=== PATIENT | female | born 1995 | race Caucasian/White ===

== ENCOUNTER 2016-08-17 15:52 | Observation (INO) ==
[2016-08-17 16:57] LABS: Bilirubin,Urine Negative (Negative); Blood,Urine Negative (Negative); Clarity,Urine Clear (Clear); Color,Urine Yellow (Yellow); Glucose,Urine (UA) Normal (Normal); Ketones,Urine Negative (Negative); Leukocyte Esterase,Urine Negative (Negative); Nitrite,Urine Negative (Negative); PH,Urine 6.5 pH Units (5.0-8.0); Protein,Urine Negative (Neg-Trace); Specific Gravity,Urine 1.021 (1.010-1.025); Urobilinogen,Urine Normal (Normal)
--- NOTE | 2016-08-17 17:04 | OB/GYN Progress Note ---
Date of Encounter: 08/17/16 Time of Encounter: 17:00 - Assessment and Plan (1) 25 weeks gestation of Current Visit: Yes Status: Acute (2) Muscle strain Current Visit: Yes Status: Acute Lower abdominal and lower back muscle tenderness, No fundal tenderness. Discharge home with comfort measures. (3) Vaginal discharge during Current Visit: Yes Status: Acute Vaginosis panel sent. Pool and fern negative. Qualifiers: Trimester: second trimester Qualified Code(s): O26.892 - Other specified related conditions, second trimester; N89.8 - Other specified noninflammatory disorders of vagina Subjective - Subjective Interval history: 20 year-old presenting at 25 weeks with c/o abdominal and back muscle strain. 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 She denies contractions. SHe reports one quarter size leak of fluid. No other discharge, itching, burning, or urinary sx. No other complaints. Good FM. Antepartum ROS: movement normal, no loss of fluid, no vaginal bleeding, no contractions Objective - Vital Signs Vital Signs: Intake and Output 08/17/16 08/17/16 08/17/16 07:59 15:59 23:59 Other: Weight 90.7 kg Patient Weight 08/17/16 23:59 Weight 90.7 kg - Exam FHR comments: FHT reassuring for GA. Auscultation: bilateral: normal Abdomen: Present: soft, gravid. Absent: tenderness Uterus: Present: normal. Absent: tenderness Cervical dilation: visually closed
[2016-08-17 18:56] LABS: Candida DNA Not Detected (Not Detect); Gardnerella DNA ***DETECTED*** (Not Detect); Trichomonas DNA Not Detected (Not Detect)
== END 2016-08-17 17:33 | disposition home or self-care (01) ==
LOC: 1NENULAB
PROVIDERS: ADMIT Obstetrics & Gynecology; ATTEND Obstetrics & Gynecology

== ENCOUNTER → 2016-08-24 22:49 | Observation (INO) | END | disposition home or self-care (01) | LOC: 1NENULAB | PROVIDERS: ADMIT Obstetrics & Gynecology; ATTEND Obstetrics & Gynecology ==

== ENCOUNTER 2016-09-18 08:47 | Observation (INO) ==
[2016-09-18 09:14] LABS: Basophils % 0.3 %; Eosinophils # 0.2 K/mcL (0.0-0.6); Eosinophils % 1.8 %; Hematocrit 33.3 % (35.3-44.9); Hemoglobin 11.1 g/dL (11.5-15.4); Immature Granulocytes % 3.8 % (0-4); Lymphocytes % 17.6 %; Mean Corpuscular HGB Conc 33.3 g/dL (31.6-35.5); Mean Corpuscular Hemoglobin 29.6 pg (28.0-33.3); Mean Corpuscular Volume 88.8 fL (83.0-100.0); Mean Platelet Volume 10.1 fL (9.4-12.4); Monocytes % 9.2 %; Neutrophils # 7.5 K/mcL (1.6-8.9); Platelet Count 233 K/mcL (140-400); Red Blood Count 3.75 M/mcL (3.82-4.97); Red Cell Distribution Width 12.6 % (11.5-14.5); Segmented Neutrophils % 67.3 %
[2016-09-18 09:15] LABS: Bilirubin,Urine Negative (Negative); Blood,Urine Negative (Negative); Clarity,Urine Clear (Clear); Color,Urine Yellow (Yellow); Glucose,Urine (UA) Normal (Normal); Ketones,Urine Negative (Negative); Leukocyte Esterase,Urine Trace (Negative); Nitrite,Urine Negative (Negative); PH,Urine 6.5 pH Units (5.0-8.0); Protein,Urine Negative (Neg-Trace); Specific Gravity,Urine 1.008 (1.010-1.025); Urobilinogen,Urine Normal (Normal)
[2016-09-18] MEDS ORDERED: FLU VACC QS2016-17 36MOS UP/PF 0.5 ML SYRINGE IM ONE (09:16)
[2016-09-18 09:17] LABS: Bacteria,Urine None Seen per hpf (None-Few); Hyaline Casts,Urine None Seen per lpf (None-Few); RBC,Urine 0-3 per hpf (0-3); Squamous Epithelial Cell,Urine Many per lpf (None-Few); WBC,Urine 0-3 per hpf (0-3)
[2016-09-18 09:28] LABS: Alanine Aminotransferase 10 Units/L (0-55); Aspartate Amino Transferase 13 Units/L (5-34); BUN/Creatinine Ratio 11 (6-26); Blood Urea Nitrogen 7 mg/dL (7-20); Lactate Dehydrogenase 240 Units/L (159-327); eGFR For African Americans > 60 (> 60); eGFR For Non-African Americans > 60 (> 60)
[2016-09-18] MEDS ORDERED: Acetaminophen/Butalbital/CaffeineTABLET PO STA (09:40)
--- NOTE | 2016-09-18 09:47 | OB/GYN Progress Note ---
Date of Encounter: 09/18/16 Time of Encounter: 09:43 - Assessment and Plan (1) 30 weeks gestation of Current Visit: Yes Status: Acute admit for observation (2) headache in third trimester Current Visit: Yes Status: Acute Will give medication for headache Subjective - Subjective Principal diagnosis: Swelling and headache in with visual disturbances. Interval history: Patient is 21 y/o @ 30w2d gestational age presents to labor and delivery with complaints of lower leg edema and visual disturbances with a headache. patient reports she has had the headache for a couple of days without any relief from tylenol. Patient also reports occasional nausea. Patient reports +FM , denies any contractions or leaking of fluid, or epigastric pain. Patient denies any urinary symptoms. Antepartum ROS: movement normal, no loss of fluid, no vaginal bleeding, no contractions Objective - Vital Signs Vital Signs: Intake and Output 09/17/16 09/18/16 09/18/16 23:59 07:59 15:59 Other: Weight 93.4 kg Patient Weight 09/18/16 23:59 Weight 93.4 kg - Exam FHR: auscultation normal, category 1 FHR comments: 145 bpm moderate variability +15x15 accels no decels noted. CAt. 1 tracing. Auscultation: bilateral: normal Abdomen: Present: normal appearance, soft, gravid Uterus: Present: normal Comments: 1+DTRs, no clonus. 1+ edema bilateral lower extremities. - Labs Labs: Abnormal lab results WBC 11.2 K/mcL (4.3-11.1) H 09/18/16 09:04 RBC 3.75 M/mcL (3.82-4.97) L 09/18/16 09:04 Hgb 11.1 g/dL (11.5-15.4) L 09/18/16 09:04 Hct 33.3 % (35.3-44.9) L 09/18/16 09:04 Ur Specific [place] 1.008 (1.010-1.025) L 09/18/16 09:04 Ur Leukocyte Esterase Trace (Negative) H 09/18/16 09:04 Ur Squamous Epith Cells Many per lpf (None-Few) H 09/18/16 09:04
== END 2016-09-18 11:45 | disposition home or self-care (01) ==
LOC: 1NENULAB
PROVIDERS: ADMIT Student in an Organized Health Care Education/Training Program; ATTEND Student in an Organized Health Care Education/Training Program

== ENCOUNTER 2016-10-10 17:01 | Observation (INO) ==
[2016-10-10 17:46] LABS: Bilirubin,Urine Negative (Negative); Blood,Urine Negative (Negative); Clarity,Urine Cloudy (Clear); Color,Urine Yellow (Yellow); Glucose,Urine (UA) Normal (Normal); Ketones,Urine Negative (Negative); Leukocyte Esterase,Urine Moderate (Negative); Nitrite,Urine Negative (Negative); PH,Urine 7.5 pH Units (5.0-8.0); Protein,Urine Negative (Neg-Trace); Specific Gravity,Urine 1.011 (1.010-1.025); Urobilinogen,Urine Normal (Normal)
[2016-10-10 17:48] LABS: Bacteria,Urine Few per hpf (None-Few); Hyaline Casts,Urine None Seen per lpf (None-Few); RBC,Urine 0-3 per hpf (0-3); Squamous Epithelial Cell,Urine Many per lpf (None-Few); WBC,Urine 15-30 per hpf (0-3)
[2016-10-10 18:01] LABS: Amorphous Sediment,Urine Moderate (Few)
--- NOTE | 2016-10-10 18:28 | OB/GYN History & Physical ---
Date of Encounter: 10/10/16 Time of Encounter: 18:26 Assessment and Plan (1) 33 weeks gestation of Current visit: Yes Status: Acute back pain located along midline with bandlike radiation to the abdomen causing cramping FHR baseline 140 with variability accel 15x15 History of Present Illness Chief complaint: back pain, pre term labor eval HPI: Ms. Drake is a 21 year old female Past Med Surg Social Fam HX - Past Medical History Medical history: no medical history Psychiatric history: anxiety, ADHD, depression - Past Surgical History Surgical History: cholecystectomy, other - Social History Smoking Status: Former smoker Smokeless Tobacco Status: No Alcohol use: none Drug use: none - Family History Mother Adopted: No Family Member Ethnicity: Non- Living Status: Still Living Hx Family Cardiac Disorders: Yes (htn) Hx Family Respiratory Disorders: No Hx Family Cancer: No Hx Family GI Disorders: No Hx Family Endocrine Disorder: No Hx Family Neuromuscular Disorders: No Hx Family Neurologic Disorders: No Hx Family HEENT Disorders: No Hx Family Autoimmune Disorders: No Obstetrical History - Pregnancies : 2 Para: 1 Term: 1 : 0 Ab's: 0 Livin Medications and Allergies Pnv95/Ferrous Fumarate/FA [ Vitamin Tablet] 1 tab PO DAILY 08/17/16 [ History] Ferrous Sulfate [Iron] 325 mg PO DAILY 09/18/16 [History] Allergies penicillin G Allergy (Verified 10/10/16 17:33) Hives Review of System OB All systems PM: reviewed and no additional remarkable complaints except as stated Exam - Constitutional Constitutional: well developed, well nourished, no acute distress - HEENT HEENT: Normocephaly, Mucus Membranes Moist - Neck Neck exam: full ROM, normal inspection, supple, trachea midline - Lungs Respiratory exam: CTAB - Cardiovascular Cardiovascular exam: RRR, +S1, +S2 - Abdomen Abdomen: Present: bowel sounds normal, gravid, non tender - Extremities Extremities exam: full ROM, normal capillary refill, normal inspection, pedal edema (mild), warm, radial pulses palpable and symetrical Deep Tendon Reflex Grade: 2+ Normal Results Abnormal lab results Urine Clarity Cloudy (Clear) A 10/10/16 17:30 Ur Leukocyte Esterase Moderate (Negative) H 10/10/16 17:30 Urine Microscopic WBC 15-30 per hpf (0-3) H 10/10/16 17:30 Ur Squamous Epith Cells Many per lpf (None-Few) H 10/10/16 17:30 Amorphous Sediment Moderate (Few) H 10/10/16 17:30 Ur Culture Indicated? YES (NO) A 10/10/16 17:30 All other labs normal. - VTE Reasons for not Prescribing Prophylaxis: Treatment not Indicated - Low risk for VTE
--- NOTE | 2016-10-10 18:40 | Discharge Summary ---
Date of Encounter: 10/10/16 Time of Encounter: 18:43 - Discharge Diagnosis (1) 33 weeks gestation of Priority: Primary Status: Acute Comments: 21-year-old female 33 weeks 3 days presents for lower back pain and pink discharge. She follows with OB Dr. Maddox. Reports yesterday afternoon at 1400 she began to experience a dull back ache. With certain movements pain became sharp and appeared to radiate like a band around to the abdomen. She has tried Tylenol and a warm bath to help with the pain but with minimal relief. She denies any heavy lifting but was at work today when pain worsened. Afterwards she began to experience some cramping similar to menstrual cramps. Pain is intermittent. She denies any injury or trauma to the back. Denies any urinary symptoms. Denies any fevers, chills, nausea, vomiting. Denies any contractions or vaginal bleeding but did notice some pink discharge last night. Last sexual intercourse 1 week ago. Endorses good movement. Reports a headache that has been intermittent throughout her . Blood pressure is normotensive here SBP 107. On physical exam patient appears in no apparent distress. No fevers. Normotensive and afebrile. She tolerates solids and liquids without any nausea or vomiting. Abdomen is soft, gravid, without focal tenderness. No CVA tenderness. Tissue texture changes to L2-3 along paraspinal muscles. Likely musculoskeletal pain. Urinalysis not consistent with infection. OMT to lower back with good response, relaxation of tissues and patient reports significant relief of pain. Work excuse given. Patient agrees to return for bright red vaginal bleeding, contractions, headache, changes in vision, RUQ/epigastric discomfort. (2) Back pain affecting in third trimester Priority: Secondary Status: Acute Comments: FHR category 1, baseline 140 with moderate variability, +15x15 accels no decels noted Urinalysis appears contaminated and not consistent with infection Back pain is paraspinal, no CVA tenderness, likely musculoskeletal etiology and not pyelonephritis Recommend to follow up with OB as scheduled Tylenol for pain at home OMT soft tissue massage to L2-3 with good tissue relaxation, patient tolerated treatment well Patient requests future OMT, recommended residency clinic with DO physicians or follow up with her chiropractor - Discharge Medications Home Medications: Pnv95/Ferrous Fumarate/FA [ Vitamin Tablet] 1 tab PO DAILY 08/17/16 [ History] Ferrous Sulfate [Iron] 325 mg PO DAILY 09/18/16 [History] Allergies/Adverse Reactions: Allergies penicillin G Allergy (Verified 10/10/16 17:33) Hives Data Procedures and tests throughout hospitalization: Laboratory Tests 10/10/16 17:30 Urine Color Yellow Urine Clarity Cloudy A Urine pH 7.5 Ur Specific [place] 1.011 Urine Protein Negative Urine Glucose (UA) Normal Urine Ketones Negative Urine Blood Negative Urine Nitrite Negative Urine Bilirubin Negative Urine Urobilinogen Normal Ur Leukocyte Esterase Moderate H Urine Microscopic RBC 0-3 Urine Microscopic WBC 15-30 H Ur Squamous Epith Cells Many H Amorphous Sediment Moderate H Urine Bacteria Few Hyaline Casts None Seen Ur Culture Indicated? YES A Labs on day of discharge: Labs from last 24 hours 10/10/16 17:30 Urine Color Yellow Urine Clarity Cloudy A Urine pH 7.5 Ur Specific [place] 1.011 Urine Protein Negative Urine Glucose (UA) Normal Urine Ketones Negative Urine Blood Negative Urine Nitrite Negative Urine Bilirubin Negative Urine Urobilinogen Normal Ur Leukocyte Esterase Moderate H Urine Microscopic RBC 0-3 Urine Microscopic WBC 15-30 H Ur Squamous Epith Cells Many H Amorphous Sediment Moderate H Urine Bacteria Few Hyaline Casts None Seen Ur Culture Indicated? YES A Date of admission: 10/10/16 17:01 Primary care physician: Frankie Celestin Discharging clinician: Eldon Hernandez Anticipated date of discharge: 10/10/16 - Patient Status Disposition: Home, Self-Care Condition: Good Functional capacity at discharge: independent ambulation Overall status at discharge: patient is progressing back to baseline - Discharge Instructions Instructions: Back Pain (GEN) Follow Up With: Frankie Celestin MD [Primary Care Provider] - Forms: Work/School Release Additional Instructions: LABOR AND DELIVERY DISCHARGE INSTRUCTIONS Signs and Symptoms to be Reported to your Doctor Immediately: * Sudden gush, continuous or intermittent lead of fluid from vagina (note the time of gush and color of fluid) * Onset of bright red vaginal bleeding with or without pain (if you had a vaginal exam during this visit you may notice some dark red spotting. This is normal.) * Lower abdominal cramping or backache that is premenstrual-like feeling. * More than 6 contractions in one hour. * Burning during urination, having to urinate more frequently or pain in your mid-back. * A change in the baby's activity. This could be an increase or decrease in activity. * Severe headache which does not go away with tylenol. * Sudden swelling in the face, hands, arms and/or legs. * Upper abdominal pain - sometimes associated with heartburn or nausea and is not relieved by Maalox, Mylanta or Tums. * Dizziness or blurred vision or visual disturbances (seeing stars/lights). * Kick Counts One hour after a meal, lay down on one side in a quiet place. Count the number of chaitanya the baby moves during an hour. If less than 6 movements, notify your physician. Diet: *Force fluids - 8-10 tall glasses of fluid per day. May include popsicles and jello. 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 Absent: chest wall tenderness, respiratory distress - Cardiovascular Cardiovascular exam IM: Present: RRR, +S1, +S2 - GI/Abdominal GI/Abdominal exam IM: normal bowel sounds, no peritoneal signs Additional comments: no CVA tenderness, mild bilateral paraspinal tenderness along L2-3 - External exam: normal external exam - Extremities Exam Extremities exam IM: Present: full ROM, normal capillary refill, pedal edema ( MILD) - Neurological Exam Neurological exam: alert, oriented X3, reflexes normal, no focal deficits - Psychiatric Additional comments: normal mood and affect - VTE Reasons for not Prescribing Prophylaxis: Treatment not Indicated - Low risk for VTE
== END 2016-10-10 18:58 | disposition home or self-care (01) ==
LOC: 1NENULAB
PROVIDERS: ADMIT Advanced Practice Midwife; ATTEND Obstetrics & Gynecology

== ENCOUNTER 2016-10-12 14:16 | Observation (INO) ==
[2016-10-12 15:19] VITALS: BP 112/68
[2016-10-12 15:20] LABS: Basophils % 0.3 %; Eosinophils # 0.2 K/mcL (0.0-0.6); Eosinophils % 1.5 %; Hematocrit 29.2 % (35.3-44.9); Immature Granulocytes % 2.4 % (0-4); Lymphocytes # 2.1 K/mcL (0.6-4.6); Lymphocytes % 17.5 %; Mean Corpuscular HGB Conc 34.2 g/dL (31.6-35.5); Mean Corpuscular Hemoglobin 29.9 pg (28.0-33.3); Mean Corpuscular Volume 87.4 fL (83.0-100.0); Mean Platelet Volume 10.1 fL (9.4-12.4); Monocytes # 1.1 K/mcL (0.0-1.3); Monocytes % 9.6 %; Neutrophils # 8.1 K/mcL (1.6-8.9); Platelet Count 218 K/mcL (140-400); Red Blood Count 3.34 M/mcL (3.82-4.97); Segmented Neutrophils % 68.7 %
[2016-10-12 15:22] LABS: Alanine Aminotransferase 14 Units/L (0-55); Aspartate Amino Transferase 15 Units/L (5-34); BUN/Creatinine Ratio 11 (6-26); Blood Urea Nitrogen 6 mg/dL (7-20); Lactate Dehydrogenase 143 Units/L (159-327); Uric Acid 5.1 mg/dL (2.6-6.0); eGFR For African Americans > 60 (> 60); eGFR For Non-African Americans > 60 (> 60)
[2016-10-12] MEDS ORDERED: Acetaminophen/Butalbital/CaffeineTABLET PO PRN (15:53)
[2016-10-12] MEDS ORDERED: Ringers Solution, Lactated 1,000 ML ONE (16:13)
[2016-10-12] MEDS ORDERED: Metoclopramide 10 MG/2 ML VIAL IVP ONE (16:51)
--- NOTE | 2016-10-12 17:02 | OB/GYN Progress Note ---
Date of Encounter: 10/12/16 Time of Encounter: 16:30 - Assessment and Plan (1) 33 weeks gestation of Current Visit: No Status: Acute (2) headache in third trimester Current Visit: No Status: Acute BP:95/53 with follow-up of 133/83 PIH labs with normal results Fioricet given for headache with minimal results will give Reglan IV 1 Fluid bolus due to patient stating she has not had a lot to eat or drink today headache has lessened by mouth and IV medications and fluid bolus. will discharge home instructions on when to return to triage for evaluation and call provider discussed with patient and patient states understanding Subjective - Subjective Interval history: 21-year-old at 33 weeks and 5 days called the CNM earlier today with complaints of headache in the front of her head that was not relieved with Tylenol (this has been an ongoing problem in her ) and new onset of seeing white spots in her visual field constantly and also complained of epigastric pain. Patient told to come to triage for PI eval due to new onset of symptoms of visual disturbances and complaint of epigastric pain with headache. Patient confirmed the same symptoms when arriving in triage, patient reports good movement denies any leaking of fluid or vaginal bleeding patient states she is feeling an occasional contraction Antepartum ROS: movement normal, contractions (occasional tightening), no loss of fluid, no vaginal bleeding Objective - Vital Signs Vital Signs: Vital Signs Temp Pulse Resp BP 10/12/16 15:17 97.8 F 106 16 112/68 Intake and Output 10/12/16 10/12/16 10/12/16 07:59 15:59 23:59 Other: Weight 95.6 kg Patient Weight 10/12/16 23:59 Weight 95.6 kg - Exam FHR: auscultation normal Auscultation: bilateral: normal Abdomen: Present: normal appearance, soft, gravid Cervical dilation: fingertip Cervix effacement: long station: -3 - Labs Labs: Abnormal lab results WBC 11.8 K/mcL (4.3-11.1) H 10/12/16 15:00 RBC 3.34 M/mcL (3.82-4.97) L 10/12/16 15:00 Hgb 10.0 g/dL (11.5-15.4) L 10/12/16 15:00 Hct 29.2 % (35.3-44.9) L 10/12/16 15:00 BUN 6 mg/dL (7-20) L 10/12/16 15:00 Lactate Dehydrogenase 143 Units/L (159-327) L 10/12/16 15:00
== END 2016-10-12 17:50 | disposition home or self-care (01) ==
LOC: 1NENULAB
PROVIDERS: ADMIT Obstetrics & Gynecology; ATTEND Obstetrics & Gynecology

== ENCOUNTER 2016-10-18 09:42 | Observation (INO) ==
[2016-10-18 10:50] LABS: Basophils % 0.3 %; Eosinophils # 0.2 K/mcL (0.0-0.6); Eosinophils % 1.6 %; Hematocrit 29.7 % (35.3-44.9); Immature Granulocytes % 2.1 % (0-4); Lymphocytes # 1.4 K/mcL (0.6-4.6); Lymphocytes % 13.1 %; Mean Corpuscular HGB Conc 33.7 g/dL (31.6-35.5); Mean Corpuscular Hemoglobin 29.8 pg (28.0-33.3); Mean Corpuscular Volume 88.4 fL (83.0-100.0); Mean Platelet Volume 10.6 fL (9.4-12.4); Neutrophils # 8.2 K/mcL (1.6-8.9); Platelet Count 230 K/mcL (140-400); Red Blood Count 3.36 M/mcL (3.82-4.97); Red Cell Distribution Width 13.2 % (11.5-14.5); Segmented Neutrophils % 73.9 %
[2016-10-18 10:50] LABS: Bilirubin,Urine Negative (Negative); Blood,Urine Negative (Negative); Clarity,Urine Cloudy (Clear); Color,Urine Yellow (Yellow); Glucose,Urine (UA) Normal (Normal); Ketones,Urine Negative (Negative); Leukocyte Esterase,Urine Small (Negative); Nitrite,Urine Negative (Negative); PH,Urine 6.5 pH Units (5.0-8.0); Protein,Urine Trace mg/dL (Neg-Trace); Specific Gravity,Urine 1.029 (1.010-1.025); Urobilinogen,Urine Normal (Normal)
[2016-10-18 10:53] LABS: Hyaline Casts,Urine None Seen per lpf (None-Few); RBC,Urine 0-3 per hpf (0-3); Squamous Epithelial Cell,Urine Many per lpf (None-Few)
[2016-10-18 10:57] LABS: Protein/Creatinine Ratio,Urine 0.11 mg/mg (0-0.20)
[2016-10-18 11:01] LABS: Alanine Aminotransferase 13 Units/L (0-55); Aspartate Amino Transferase 16 Units/L (5-34); BUN/Creatinine Ratio 11 (6-26); Blood Urea Nitrogen 6 mg/dL (7-20); Lactate Dehydrogenase 171 Units/L (159-327); Uric Acid 5.3 mg/dL (2.6-6.0); eGFR For African Americans > 60 (> 60); eGFR For Non-African Americans > 60 (> 60)
[2016-10-18 11:03] LABS: Bacteria,Urine Few per hpf (None-Few); Calcium Oxalate Crystals,Urine Present; Mucus,Urine Few (Few)
--- NOTE | 2016-10-18 11:18 | Discharge Summary ---
Date of Encounter: 10/18/16 Time of Encounter: 11:17 - Discharge Diagnosis (1) 34 weeks gestation of Priority: Primary Status: Acute Comments: Patient reports good movement denies leaking of fluid. Patient states she last night she was having contractions about every 6 minutes apart. Occasional contractions noted on monitor here areas cervical exam was done in office by Dr. Maddox (2) headache in third trimester Priority: Primary Status: Acute Comments: Patient continues to complain of headache in , headache is in the frontal lobe it is unchanged from earlier in , patient states pain is well managed intolerable, does not desire any intervention at this time. All PIH labs negative. Discussed lab results with patient is in agreement with discharge. Labor precautions discussed with patient and when to call provider and return to triage also discussed and patient states understanding - Discharge Medications Home Medications: Pnv95/Ferrous Fumarate/FA [ Vitamin Tablet] 1 tab PO DAILY 08/17/16 [ History] Ferrous Sulfate [Iron] 325 mg PO DAILY 09/18/16 [History] Allergies/Adverse Reactions: Allergies penicillin G Allergy (Verified 10/18/16 10:10) Hives Data Procedures and tests throughout hospitalization: Laboratory Tests 10/18/16 10/18/16 10/18/16 10:15 10:15 10:34 WBC 11.0 RBC 3.36 L Hgb 10.0 L Hct 29.7 L MCV 88.4 MCH 29.8 MCHC 33.7 RDW 13.2 Plt Count 230 MPV 10.6 Immature Gran % 2.1 Seg Neutrophils % 73.9 Lymphocytes % 13.1 Monocytes % 9.0 Eosinophils % 1.6 Basophils % 0.3 Neutrophils # 8.2 Lymphocytes # 1.4 Monocytes # 1.0 Eosinophils # 0.2 Basophils # 0.0 BUN 6 L Creatinine 0.56 L Est GFR ( Amer) > 60 Est GFR (Non-Af Amer) > 60 BUN/Creatinine Ratio 11 Uric Acid 5.3 AST 16 ALT 13 Lactate Dehydrogenase 171 Urine Color Urine Clarity Urine pH Ur Specific [place] Urine Protein Urine Glucose (UA) Urine Ketones Urine Blood Urine Nitrite Urine Bilirubin Urine Urobilinogen Ur Leukocyte Esterase Urine Microscopic RBC Urine Microscopic WBC Ur Squamous Epith Cells Calcium Oxalate Crystal Urine Bacteria Hyaline Casts Urine Mucus Urine Yeast Ur Culture Indicated? Urine Creatinine 198 Protein/Creatinin Ratio 0.11 Urine Total Protein 21 H 10/18/16 10:34 WBC RBC Hgb Hct MCV MCH MCHC RDW Plt Count MPV Immature Gran % Seg Neutrophils % Lymphocytes % Monocytes % Eosinophils % Basophils % Neutrophils # Lymphocytes # Monocytes # Eosinophils # Basophils # BUN Creatinine Est GFR ( Amer) Est GFR (Non-Af Amer) BUN/Creatinine Ratio Uric Acid AST ALT Lactate Dehydrogenase Urine Color Yellow Urine Clarity Cloudy A Urine pH 6.5 Ur Specific [place] 1.029 H Urine Protein Trace Urine Glucose (UA) Normal Urine Ketones Negative Urine Blood Negative Urine Nitrite Negative Urine Bilirubin Negative Urine Urobilinogen Normal Ur Leukocyte Esterase Small H Urine Microscopic RBC 0-3 Urine Microscopic WBC 5-15 H Ur Squamous Epith Cells Many H Calcium Oxalate Crystal Present Urine Bacteria Few Hyaline Casts None Seen Urine Mucus Few Urine Yeast Test Not Performed Ur Culture Indicated? YES A Urine Creatinine Protein/Creatinin Ratio Urine Total Protein Labs on day of discharge: Labs from last 24 hours 10/18/16 10/18/16 10/18/16 10:34 10:34 10:15 WBC RBC Hgb Hct MCV MCH MCHC RDW Plt Count MPV Immature Gran % Seg Neutrophils % Lymphocytes % Monocytes % Eosinophils % Basophils % Neutrophils # Lymphocytes # Monocytes # Eosinophils # Basophils # BUN 6 L Creatinine 0.56 L Est GFR ( Amer) > 60 Est GFR (Non-Af Amer) > 60 BUN/Creatinine Ratio 11 Uric Acid 5.3 AST 16 ALT 13 Lactate Dehydrogenase 171 Urine Color Yellow Urine Clarity Cloudy A Urine pH 6.5 Ur Specific [place] 1.029 H Urine Protein Trace Urine Glucose (UA) Normal Urine Ketones Negative Urine Blood Negative Urine Nitrite Negative Urine Bilirubin Negative Urine Urobilinogen Normal Ur Leukocyte Esterase Small H Urine Microscopic RBC 0-3 Urine Microscopic WBC 5-15 H Ur Squamous Epith Cells Many H Calcium Oxalate Crystal Present Urine Bacteria Few Hyaline Casts None Seen Urine Mucus Few Urine Yeast Test Not Performed Ur Culture Indicated? YES A Urine Creatinine 198 Protein/Creatinin Ratio 0.11 Urine Total Protein 21 H 10/18/16 10:15 WBC 11.0 RBC 3.36 L Hgb 10.0 L Hct 29.7 L MCV 88.4 MCH 29.8 MCHC 33.7 RDW 13.2 Plt Count 230 MPV 10.6 Immature Gran % 2.1 Seg Neutrophils % 73.9 Lymphocytes % 13.1 Monocytes % 9.0 Eosinophils % 1.6 Basophils % 0.3 Neutrophils # 8.2 Lymphocytes # 1.4 Monocytes # 1.0 Eosinophils # 0.2 Basophils # 0.0 BUN Creatinine Est GFR ( Amer) Est GFR (Non-Af Amer) BUN/Creatinine Ratio Uric Acid AST ALT Lactate Dehydrogenase Urine Color Urine Clarity Urine pH Ur Specific [place] Urine Protein Urine Glucose (UA) Urine Ketones Urine Blood Urine Nitrite Urine Bilirubin Urine Urobilinogen Ur Leukocyte Esterase Urine Microscopic RBC Urine Microscopic WBC Ur Squamous Epith Cells Calcium Oxalate Crystal Urine Bacteria Hyaline Casts Urine Mucus Urine Yeast Ur Culture Indicated? Urine Creatinine Protein/Creatinin Ratio Urine Total Protein Date of admission: 10/18/16 09:42 Primary care physician: Frankie Celestin Discharging clinician: Radha Hayden Anticipated date of discharge: 10/18/16 - Patient Status Disposition: Home, Self-Care Condition: Good Functional capacity at discharge: independent ambulation Overall status at discharge: patient is back to baseline - Discharge Instructions Follow Up With: Frankie Celestin MD [Primary Care Provider] - Aarti Maddox MD [Partnered Physician] - - Diet and Activity Activity: resume usual activities as tolerated Diet: regular diet 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: other (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 eval) Time Attestation: Total time spent providing and/or coordinating discharge services: Time Spent: Less than 30 minutes Exam - Constitutional General appearance IM: A&O X 3 - Respiratory Respiratory exam: Present: CTAB - Cardiovascular Cardiovascular exam IM: Present: RRR, +S1, +S2 - GI/Abdominal GI/Abdominal exam IM: normal bowel sounds, soft (gravid) - Extremities Exam Extremities exam IM: Present: normal capillary refill, normal inspection - Neurological Exam Neurological exam: normal gait, oriented X3, reflexes normal - VTE Reasons for not Prescribing Prophylaxis: Treatment not Indicated - Low risk for VTE
== END 2016-10-18 11:30 | disposition home or self-care (01) ==
LOC: 1NENULAB
PROVIDERS: ADMIT Obstetrics & Gynecology; ATTEND Obstetrics & Gynecology

== ENCOUNTER 2016-10-25 09:12 | Observation (INO) ==
[2016-10-25 09:51] LABS: Basophils % 0.2 %; Eosinophils # 0.1 K/mcL (0.0-0.6); Eosinophils % 1.2 %; Hemoglobin 10.4 g/dL (11.5-15.4); Immature Granulocytes % 2.7 % (0-4); Lymphocytes # 1.8 K/mcL (0.6-4.6); Lymphocytes % 14.7 %; Mean Corpuscular HGB Conc 33.5 g/dL (31.6-35.5); Mean Corpuscular Hemoglobin 29.9 pg (28.0-33.3); Mean Corpuscular Volume 89.1 fL (83.0-100.0); Mean Platelet Volume 10.3 fL (9.4-12.4); Monocytes % 8.3 %; Neutrophils # 8.8 K/mcL (1.6-8.9); Platelet Count 254 K/mcL (140-400); Red Blood Count 3.48 M/mcL (3.82-4.97); Red Cell Distribution Width 13.4 % (11.5-14.5); Segmented Neutrophils % 72.9 %
[2016-10-25 10:12] LABS: Alanine Aminotransferase 21 Units/L (0-55); Aspartate Amino Transferase 18 Units/L (5-34); BUN/Creatinine Ratio 6 (6-26); Blood Urea Nitrogen 4 mg/dL (7-20); Lactate Dehydrogenase 173 Units/L (159-327); Uric Acid 4.9 mg/dL (2.6-6.0); eGFR For African Americans > 60 (> 60); eGFR For Non-African Americans > 60 (> 60)
--- NOTE | 2016-10-25 10:37 | OB/GYN Progress Note ---
Date of Encounter: 10/25/16 Time of Encounter: 10:35 - Assessment and Plan (1) 35 weeks gestation of Current Visit: Yes Status: Acute (2) Elevated blood pressure affecting in third trimester, antepartum Current Visit: Yes Status: Acute Blood pressures all within normal limits here in triage, last blood pressure 121 /63 Patient remains asymptomatic All PIH labs within normal limits heart rate reactive baseline 140 Patient concerned with working long shifts work excuse given to limit work shifts to 8 hours and no more than 30 hours in 1 week Patient discharged to home with labor precautions and when to return to triage, follow-up with Vika at next scheduled appointment (3) NST (non-stress test) reactive Current Visit: Yes Status: Acute Baseline 140 Subjective - Subjective Interval history: Patient presents to triage sent over from the office visit with Dr. Maddox for high blood pressure. Patient denies headache, blurry vision, or other visual changes at this time, also denies epigastric pain. Patient reports good movement denies contractions leaking of fluid or vaginal bleeding. No other complaints at this time Antepartum ROS: movement normal, no loss of fluid, no vaginal bleeding, no contractions Objective - Vital Signs Vital Signs: Intake and Output 10/24/16 10/25/16 10/25/16 23:59 07:59 15:59 Other: Weight 95.9 kg Patient Weight 10/25/16 23:59 Weight 95.9 kg - Exam FHR: auscultation normal (baseline 140) Auscultation: bilateral: normal Abdomen: Present: normal appearance, soft, gravid - Labs Labs: Abnormal lab results WBC 12.1 K/mcL (4.3-11.1) H 10/25/16 09:33 RBC 3.48 M/mcL (3.82-4.97) L 10/25/16 09:33 Hgb 10.4 g/dL (11.5-15.4) L 10/25/16 09:33 Hct 31.0 % (35.3-44.9) L 10/25/16 09:33 BUN 4 mg/dL (7-20) L 10/25/16 09:33
== END 2016-10-25 12:43 | disposition home or self-care (01) ==
LOC: 1NENULAB
PROVIDERS: ADMIT Obstetrics & Gynecology; ATTEND Obstetrics & Gynecology

== ENCOUNTER 2016-11-01 09:35 | Observation (INO) ==
--- NOTE | 2016-11-01 11:09 | OB/GYN Progress Note ---
Date of Encounter: 11/01/16 Time of Encounter: 11:06 - Assessment and Plan (1) 36 weeks gestation of Current Visit: Yes Status: Acute (2) Decreased movement Current Visit: Yes Status: Acute Pt now reports good FM. NST reactive. Discharge home with precautions. (3) Elevated blood pressure affecting in third trimester, antepartum Current Visit: No Status: Acute BP normal in triage. No s/sx PIH. (4) NST (non-stress test) reactive Current Visit: No Status: Acute Subjective - Subjective Interval history: 21 year-old presenting at 36 weeks gestation from office for decreased movement. Pt reports no movement today prior to arriving to L&D. She does admit good FM while in triage today. No other complaints. She did have an elevated BP initially in office that improved while she was there. Her BP in triage was 121/69. Pt denies HARO, vision changes, RUQ pain or increased edema. Antepartum ROS: no loss of fluid, no vaginal bleeding, no movement normal , no contractions Objective - Vital Signs Vital Signs: Intake and Output 10/31/16 11/01/16 11/01/16 23:59 07:59 15:59 Other: Weight 96 kg Patient Weight 11/01/16 23:59 Weight 96 kg - Exam FHR: category 1 FHR comments: NST 140BPM reactive Auscultation: bilateral: normal Abdomen: Present: soft, gravid. Absent: tenderness Uterus: Absent: tenderness Cervical dilation: defer
== END 2016-11-01 11:15 | disposition home or self-care (01) ==
LOC: 1NENULAB

== ENCOUNTER 2016-11-07 21:05 | Observation (INO) ==
[2016-11-07 21:22] VITALS: BP 139/80
--- NOTE | 2016-11-07 22:31 | OB/GYN Progress Note ---
Date of Encounter: 11/07/16 Time of Encounter: 22:28 - Assessment and Plan (1) 37 weeks gestation of Current Visit: Yes Status: Acute (2) Encounter for suspected PROM, with rupture of membranes not found Current Visit: Yes Status: Acute Fern negative, nitrazine negative, negative for pooling on visual exam Patient discharged to home with instructions of when to return to labor and delivery for evaluation, patient verbalizes understanding Subjective - Subjective Interval history: Patient states was walking around this evening and had a large rest of fluid that soaked her underwear and her pants, patient states she kept walking and fluid Coming out, and also noticed some contractions. Patient states she has had no more fluid come out since 1800, but came in for evaluation. Patient reports good movement denies vaginal bleeding Antepartum ROS: loss of fluid, movement normal, contractions, no vaginal bleeding Objective - Vital Signs Vital Signs: Vital Signs Temp Pulse Resp BP 11/07/16 21:13 98.6 F 111 16 139/80 Intake and Output 11/07/16 11/07/16 11/07/16 07:59 15:59 23:59 Other: Weight 97 kg Patient Weight 11/07/16 23:59 Weight 97 kg - Exam FHR: category 1 Auscultation: bilateral: normal Abdomen: Present: normal appearance, soft, gravid Uterus: Present: normal Cervical dilation: Per RN
== END 2016-11-07 22:31 | disposition home or self-care (01) ==
LOC: 1NENULAB
PROVIDERS: ADMIT Advanced Practice Midwife; ATTEND Obstetrics & Gynecology

== ENCOUNTER → 2016-11-12 23:12 | Observation (INO) ==
--- NOTE | 2016-11-12 22:15 | OB/GYN Progress Note ---
Date of Encounter: 11/12/16 Time of Encounter: 22:13 - Assessment and Plan (1) Uterine contractions Current Visit: Yes Status: Acute Will monitor contractions. If no change in 2-3 hours will discharge home (2) 38 weeks gestation of Current Visit: No Status: Resolved Subjective - Subjective Interval history: A 1-year-old at 38+1 gestation states she started having contractions earlier this afternoon contractions became more painful and regular and so she came into the hospital for evaluation. Patient states she feels occasional contractions and rate contraction pain 5 out of 10. Reports good movement and denies vaginal bleeding or leaking of fluid, GBS negative Antepartum ROS: movement normal, contractions, no loss of fluid, no vaginal bleeding Objective - Vital Signs Vital Signs: Intake and Output 11/12/16 11/12/16 11/12/16 07:59 15:59 23:59 Other: Weight 96.2 kg Patient Weight 11/12/16 23:59 Weight 96.2 kg - Exam FHR: category 1 Auscultation: bilateral: normal Abdomen: Present: normal appearance, soft, gravid Cervical dilation: 4 Cervix effacement: 50 station: -3
== END | disposition home or self-care (01) ==
LOC: 1NENULAB
PROVIDERS: ADMIT Advanced Practice Midwife; ATTEND Advanced Practice Midwife

== ENCOUNTER 2016-11-15 09:20 | Inpatient (IN) ==
[2016-11-15 09:52] LABS: Basophils % 0.2 %; Eosinophils # 0.2 K/mcL (0.0-0.6); Eosinophils % 1.5 %; Hematocrit 32.3 % (35.3-44.9); Hemoglobin 11.1 g/dL (11.5-15.4); Immature Granulocytes % 1.9 % (0-4); Lymphocytes % 18.1 %; Mean Corpuscular HGB Conc 34.4 g/dL (31.6-35.5); Mean Corpuscular Hemoglobin 29.8 pg (28.0-33.3); Mean Corpuscular Volume 86.8 fL (83.0-100.0); Mean Platelet Volume 10.3 fL (9.4-12.4); Monocytes % 9.1 %; Neutrophils # 7.5 K/mcL (1.6-8.9); Platelet Count 257 K/mcL (140-400); Red Blood Count 3.72 M/mcL (3.82-4.97); Red Cell Distribution Width 13.8 % (11.5-14.5); Segmented Neutrophils % 69.2 %
[2016-11-15 10:09] LABS: Alanine Aminotransferase 27 Units/L (0-55); Aspartate Amino Transferase 23 Units/L (5-34); BUN/Creatinine Ratio 8 (6-26); Lactate Dehydrogenase 200 Units/L (159-327); Uric Acid 6.6 mg/dL (2.6-6.0); eGFR For African Americans > 60 (> 60); eGFR For Non-African Americans > 60 (> 60)
[2016-11-15 10:11] LABS: Blood Urea Nitrogen 5 mg/dL (7-20)
--- NOTE | 2016-11-15 10:17 | OB/GYN History & Physical ---
Date of Encounter: 11/15/16 Time of Encounter: 10:15 Assessment and Plan (1) 38 weeks gestation of Current visit: Yes Status: Acute Patient admitted for observation if cervical change is made will admit for delivery. History of Present Illness Chief complaint: Labor evaluation at 38w4d HPI: Ms. Drake is a 21 year old female at 38w4d presents to labor and delivery from OB appointment for advanced dilatation at 5.5/70%. Patient reports irregular contractions and low back pain. Patient denies LOF and reports +FM. Blood type: O+, Rubella: Immune, Hep B: nonreactive, GBS: negative. Past Med Surg Social Fam HX - Past Medical History Source: patient Medical history: asthma Psychiatric history: anxiety, ADHD, depression - Past Surgical History Surgical History: cholecystectomy, other, LE vascular intervention - Social History Smoking Status: Current every day smoker Packs per day: 07/03 Smokeless Tobacco Status: No Alcohol use: none Drug use: none - Family History Mother Adopted: No Family Member Ethnicity: Non- Living Status: Still Living Hx Family Cardiac Disorders: Yes (HTN) Hx Family Respiratory Disorders: No Hx Family Cancer: No Hx Family GI Disorders: No Hx Family Endocrine Disorder: No Hx Family Neuromuscular Disorders: No Hx Family Neurologic Disorders: No Hx Family HEENT Disorders: No Hx Family Autoimmune Disorders: No Obstetrical History - Pregnancies : 3 Para: 1 Term: 1 : 0 Ab's: 1 Livin Medications and Allergies Pnv95/Ferrous Fumarate/FA [ Vitamin Tablet] 1 tab PO DAILY 08/17/16 [ History] Ferrous Sulfate [Iron] 325 mg PO DAILY 09/18/16 [History] valACYclovir [Valtrex] 500 mg PO DAILY 11/01/16 [History] Allergies penicillin G Allergy (Verified 10/18/16 10:10) Hives Review of System OB - Constitutional Constitutional ROS IM: no anorexia, no fever(s), no headache(s) - Cardiovascular Cardiovascular: pedal edema, no chest pain, no dyspnea, no palpitations, no rapid heart rate, no slow heart rate, no syncope - Respiratory Respiratory: no dyspnea - Gastrointestinal Gastrointestinal: no abdominal pain, no constipation, no cramping, no diarrhea, no heartburn, no nausea, no vomiting - Genitourinary Genitourinary: vaginal discharge, no dysuria, no flank pain, no urinary urgency , no vaginal odor, no vaginal pruritis Exam - Constitutional Constitutional: well developed, well nourished, no acute distress, average body habitus - HEENT HEENT: Normocephaly, Mucus Membranes Moist - Neck Neck exam: full ROM, supple - Lungs Respiratory exam: CTAB - Cardiovascular Cardiovascular exam: RRR, +S1, +S2 - Abdomen Abdomen: Present: bowel sounds normal, gravid, non tender - Extremities Extremities exam: full ROM Deep Tendon Reflex Grade: 2+ Normal - Uterus Uterus exam: Present: normal size, normal contour - Anus/Rectum Anus/Rectum: Present: normal perianal skin - Comments Comments: FHR 145 bpm moderate variability +15x15 accels no decels noted. Contractions irregular Cat. 1 tracing. Results Result Diagrams: 11/15/16 09:40 Abnormal lab results RBC 3.72 M/mcL (3.82-4.97) L 11/15/16 09:40 Hgb 11.1 g/dL (11.5-15.4) L 11/15/16 09:40 Hct 32.3 % (35.3-44.9) L 11/15/16 09:40 All other labs normal. - VTE Reasons for not Prescribing Prophylaxis: Treatment not Indicated - Low risk for VTE
[2016-11-15] MEDS ORDERED: Ondansetron 4 MG/2 ML VIAL IVP PRN (11:27)
[2016-11-15] MEDS ORDERED: Naloxone 0.4 MG/ML INJ IVP PRN (11:27)
[2016-11-15] MEDS ORDERED: Famotidine 20 MG/2 ML VIAL IVP PRN (11:27)
[2016-11-15] MEDS: Ringers Solution, Lactated 1,000 ML ONE ×2 (13:38→14:40)
--- NOTE | 2016-11-15 14:20 | OB Labor Progress Note ---
Date of Encounter: 11/15/16 Time of Encounter: 14:17 Labor Progress Note - Subjective Subjective: Patient doing well. Denies any pain at this time. Discussed POC with patient. Patient denies any questions or concerns. - Cervix Cervix: 7.5/90/-1 - Heart Tones Heart Tones: 145 bpm moderate variability +15x15 accels no decels noted.Cat 1 tracing. - [place] N[place]omis: 2-3 min - Interventions Interventions: SVE, AROM moderate amount of clear fluid. - Plan Plan: Patient awaiting Epidural. Continue labor management.
[2016-11-15] MEDS ORDERED: *HR* Nalbuphine 20 MG/ML AMPUL ONE (14:28)
[2016-11-15] MEDS ORDERED: Epidural Premix (fent/bupiv) 110 ML EP ONE (14:29)
[2016-11-15] MEDS ORDERED: *HR* FentaNYL (PF) 100 MCG/2 ML VIAL ONE ×3 (14:29→17:01)
[2016-11-15] MEDS ORDERED: *HR* Nalbuphine 20 MG/ML AMPUL IVP PRN (14:29)
[2016-11-15] MEDS ORDERED: Bupivacaine-MPF 0.25% 10 ML VIAL ONE (14:29)
[2016-11-15] MEDS ORDERED: Ringers Solution, Lactated 1,000 ML ONE ×2 (14:39→16:36)
[2016-11-15] MEDS ORDERED: *HR* Ropivacaine/PF 0.2% 10 ML AMPUL ONE (15:05)
--- NOTE | 2016-11-15 15:17 | Anesthesia Evaluation PreOp ---
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 History: Other (scoliosis) Other Medical History: Denies Any Significant HX Anesthesia History: No Prior Anesthetic Complications (previous CHRISTAL x 1; denies personal and family h/o GA or NA complications) : Yes Test: Positive Alcohol Use: none Drug use: none Medications and Allergies Pnv95/Ferrous Fumarate/FA [ Vitamin Tablet] 1 tab PO DAILY 08/17/16 [ History] Ferrous Sulfate [Iron] 325 mg PO DAILY 09/18/16 [History] valACYclovir [Valtrex] 500 mg PO DAILY 11/01/16 [History] Allergies penicillin G Allergy (Verified 10/18/16 10:10) Hives - Meds/Allergy Pre-op Review Medications Reviewed: Yes Allergies Reviewed: Yes Beta Blockers on Current Med List: No Anesthesia Results - Labs 11/15/16 09:40 11/15/16 09:40 Anesthesia Exam 138/73, HR 102, RR 20 O2 Sat Height 1.68 m Weight 95.6 kg NPO (# of Hours): >2hours Pain Scale: 9 Pain Scale Used: Numeric (1 - 10) - HEENT Pupil (Motor): Pupils equal Mallampati: II Teeth: Normal Oral Opening: Greater than 3 - OIL PROGRAM COMPLIANCE SPECIALIST LOC: Oriented OIL PROGRAM COMPLIANCE SPECIALIST Motor: Normal RUE, Normal LUE, Normal RLE, Normal LLE, Normal Face OIL PROGRAM COMPLIANCE SPECIALIST Sensory: Normal: RUE, LUE, RLE, LLE, Face - Cardiac Rhythm: Regular Murmur: None - Pulmonary Breath Sounds: bilateral Clear Respiratory Effort: Symmetrical Anesthesia Assess/Plan ASA Score: 2 Modified [place] Scale for Level of Consciousness: Anixous, agitated or restless Anesthetic Plan: Regional Autologous Blood: No Monitoring Plan: Standard Monitors Recovery Plan: Other
[2016-11-15] MEDS ORDERED: *HR* FentaNYL (PF) 100 MCG/2 ML VIAL EP ONE (15:22)
[2016-11-15] MEDS ORDERED: *HR* Ropivacaine/PF 0.2% 10 ML AMPUL EP ONE (15:22)
--- NOTE | 2016-11-15 15:22 | Anesthesia Procedures ---
Date of Encounter: 11/15/16 Time of Encounter: 15:20 Procedures: Anesthesia - Epidural/Spinal Patient ID/Chart reviewed: Yes Patient examined: Yes OB Eval: Gestational age: 38 weeks 4 days OB Eval: : 3 OB Eval: Hx Para: 1 OB Eval: Dilated at (cm): 7 OB Eval: Contractions: Non-stressed pattern Consent Obtained: No Supplemental Oxygen: None/Room Air Site Prep: Aseptic Technique, Sterile prep and drape, Povidone-Iodine 1% Patient position: upright Local Anesthetic: Lidocaine 1% Amount of Local Anesthetic used: 3 Touhy Needle Gauge: 18 Touhy Needle Depth (cm): 5 Catheter Depth at Skin (cm): 10 Test Dose (1.5% Lido + Epi): Volume given (mls): 6 (given in 2 equally divided doses over a period of 5 min) Test Dose Result: Negative Loading Dose: Fentanyl (mcg): 100 Loading Dose: Other: 5mL of 0.2% ropivicaine Loading Dose Administered: Thru Catheter Infusion Med: 0.125% Bupivacaine w/ 2 mcg/ml Fentanyl (1) Infusion Rate (mls/hr): 12 (w/ demand bolus of 4mL) Catheter Secured in Place: Tegaderm, Tape Interspace Used: L3-L4 Loss of Resistance (RADHA): Yes Blood: No CSF: No Paresthesia: No
[2016-11-15] MEDS ORDERED: Epidural Premix (fent/bupiv) 110 ML EP SCH (15:30)
[2016-11-15] MEDS ORDERED: Lidocaine -MPF 2% 5 ML VIAL ONE (17:01)
[2016-11-15] MEDS ORDERED: Oxytocin 20 units/ LR 1000 mL 20 UNIT/1,000 ML BAG IVC ONE (17:33)
[2016-11-15] MEDS ORDERED: Ibuprofen 600 MG TABLET PO ONE (18:09)
--- NOTE | 2016-11-15 18:33 | OB/GYN Procedure Note ---
Delivery - Delivery Date: 11/15/16 Provider: Deedee Pretty Intrapartum events: none Delivery induction: none Delivery augmentation: rupture of membranes Delivery monitor: external FHT, external uterine Anesthesia: epidural Estimated Blood Loss: 100 - (s) Infant A Delivery Date: 11/15/16 Infant Delivery Time: 17:27 Presentation: vertex Position: LES Gender: Male Viability: Viable Pounds: 8 Ounces: 4 Weight Gram: 3.745 kg at 1 minute: 8 at 5 mins: 8 Shoulder Dystocia: not encountered Specimens collected: cord blood Placenta: spontaneous Cord: 3 umbilical vessels - Repair Episiotomy: none Laceration Description: Superficial - Complications Delivery complications: none Delivery comments: Called to patient's room. Patient reports feeling pressure. SVE complete and + 2. Patient beginning to push with contractions. Spontaneous delivery of male infant over an intact perineum. placed on maternal abdomen. Cord was clamped and cut after pulsation ceased. Infant was placed skin to skin. A small pea sized hematoma noted at the base of the introitus. perineal care and ice pack to perineum. Both mother and are stable in LDR for recovery. - Disposition Mom disposition: stable in LDR disposition: stable in LDR
[2016-11-15] MEDS ORDERED: Oxytocin 20 units/ LR 1000 mL 20 UNIT/1,000 ML BAG IVC SCH (20:29)
[2016-11-15] MEDS ORDERED: Acetaminophen 325 MG TABLET PO PRN (20:29)
[2016-11-15] MEDS ORDERED: Benzocaine/Menthol 56 GM AEROSOL SPRAY TP PRN (20:29)
[2016-11-15] MEDS ORDERED: *HR* HYDROcodone/Acet 5/325 mg TABLET PO PRN (20:29)
[2016-11-16] MEDS: Ibuprofen 600 MG TABLET PO PRN ×2 (04:55→12:01)
--- NOTE | 2016-11-16 08:22 | Discharge Summary ---
Date of Encounter: 11/16/16 Time of Encounter: 08:19 - Discharge Diagnosis (1) Vaginal delivery Priority: Primary Status: Acute Comments: States feel well. Pain well managed on po pain medication. with bottle supplementation, Desires discharge tonight. - Discharge Medications Prescriptions: Ibuprofen [Motrin] 600 mg PO Q6HR PRN #60 tablet PRN Reason: Cramping Breast Pump [BREAST PUMP] 1 each .ROUTE AD #1 each Docusate [Colace] 100 mg PO BID #60 capsule Home Medications: Pnv95/Ferrous Fumarate/FA [ Vitamin Tablet] 1 tab PO DAILY 08/17/16 [ History] Acetaminophen [Tylenol] 650 mg PO Q6HR PRN #0 tablet 11/16/16 [Rx] Benzocaine/Menthol [place] [Dermoplast [place]] 1 appl TP QID PRN #0 aerosol [Rx] Breast Pump [BREAST PUMP] 1 each .ROUTE AD #1 each 11/16/16 [Rx] Docusate [Colace] 100 mg PO BID #60 capsule 11/16/16 [Rx] Ibuprofen [Motrin] 600 mg PO Q6HR PRN #60 tablet 11/16/16 [Rx] Vit/FA 1 each PO DAILY tablet 11/16/16 [Rx] Allergies/Adverse Reactions: Allergies penicillin G Allergy (Verified 10/18/16 10:10) Hives Data Procedures and tests throughout hospitalization: Laboratory Tests 11/15/16 11/15/16 09:40 09:40 WBC 10.8 RBC 3.72 L Hgb 11.1 L Hct 32.3 L MCV 86.8 MCH 29.8 MCHC 34.4 RDW 13.8 Plt Count 257 MPV 10.3 Immature Gran % 1.9 Seg Neutrophils % 69.2 Lymphocytes % 18.1 Monocytes % 9.1 Eosinophils % 1.5 Basophils % 0.2 Neutrophils # 7.5 Lymphocytes # 2.0 Monocytes # 1.0 Eosinophils # 0.2 Basophils # 0.0 BUN 5 L Creatinine 0.66 Est GFR ( Amer) > 60 Est GFR (Non-Af Amer) > 60 BUN/Creatinine Ratio 8 Uric Acid 6.6 H AST 23 ALT 27 Lactate Dehydrogenase 200 Labs on day of discharge: Labs from last 24 hours 11/15/16 11/15/16 09:40 09:40 WBC 10.8 RBC 3.72 L Hgb 11.1 L Hct 32.3 L MCV 86.8 MCH 29.8 MCHC 34.4 RDW 13.8 Plt Count 257 MPV 10.3 Immature Gran % 1.9 Seg Neutrophils % 69.2 Lymphocytes % 18.1 Monocytes % 9.1 Eosinophils % 1.5 Basophils % 0.2 Neutrophils # 7.5 Lymphocytes # 2.0 Monocytes # 1.0 Eosinophils # 0.2 Basophils # 0.0 BUN 5 L Creatinine 0.66 Est GFR ( Amer) > 60 Est GFR (Non-Af Amer) > 60 BUN/Creatinine Ratio 8 Uric Acid 6.6 H AST 23 ALT 27 Lactate Dehydrogenase 200 Date of admission: 11/15/16 09:20 Primary care physician: Frankie Celestin Consults: 11/15/16 20:29 Consult to Tree Feller Operator [CONS] Routine Comment: Vaginal delivery, consult needed Discharging clinician: Radha Hayden Anticipated date of discharge: 11/16/16 - Patient Status Disposition: Home, Self-Care Condition: Good Functional capacity at discharge: independent ambulation Overall status at discharge: patient is back to baseline - Discharge Instructions Follow Up With: Frankie Celestin MD [Primary Care Provider] - Aarti Maddox MD [Partnered Physician] - - Diet and Activity Activity: resume usual activities as tolerated Diet: regular diet Hospital Course Reason for admission: active labor, IUP at term Delivery: Episiotomy: none Laceration: none complications: none Discharge diagnosis: IUP at term delivered [place] baby: male Hospital course: Delivery - Delivery Date: 11/15/16 Provider: Deedee Pretty Intrapartum events: none Delivery induction: none Delivery augmentation: rupture of membranes Delivery monitor: external FHT, external uterine Anesthesia: epidural Estimated Blood Loss: 100 - (s) A Delivery Date: 11/15/16 Delivery Time: 17:27 Presentation: vertex Position: LES Gender: Male Viability: Viable Pounds: 8 Ounces: 4 Weight Gram: 3.745 kg at 1 minute: 8 at 5 mins: 8 Shoulder Dystocia: not encountered Specimens collected: cord blood Placenta: spontaneous Cord: 3 umbilical vessels - Repair Episiotomy: none Laceration Description: Superficial - Complications Delivery complications: none Delivery comments: Called to patient's room. Patient reports feeling pressure. SVE complete and + 2. Patient beginning to push with contractions. Spontaneous delivery of male infant over an intact perineum. Infant placed on maternal abdomen. Cord was clamped and cut after pulsation ceased. Infant was placed skin to skin. A small pea sized hematoma noted at the base of the introitus. perineal care and ice pack to perineum. Both mother and are stable in LDR for recovery. - Disposition Mom disposition: stable in PP and appropriate for discharge Time Attestation: Total time spent providing and/or coordinating discharge services: Time Spent: Less than 30 minutes Exam - Constitutional Vitals: Temp Pulse Resp BP Pulse Ox 98.2 F 82 16 105/65 97 11/16/16 04:50 11/16/16 04:50 11/16/16 04:57 11/16/16 04:50 11/16/16 04:50 General appearance IM: A&O X 3, no acute distress - Respiratory Respiratory exam: Present: CTAB - Cardiovascular Cardiovascular exam IM: Present: RRR, +S1, +S2 - GI/Abdominal GI/Abdominal exam IM: normal bowel sounds, soft - Uterine Tone: Firm Uterus Position: At Umbilicus, Midline - Extremities Exam Extremities exam IM: Present: normal inspection - Neurological Exam Neurological exam: normal gait, oriented X3 - Psychiatric Additional comments: reports good mood
[2016-11-16] MEDS ORDERED: Prenatal Vit/FA 1 EACH TABLET PO SCH (09:00)
[2016-11-16 15:30] VITALS: BP 98/60
== END 2016-11-16 19:35 | disposition home or self-care (01) | DRG 560 ==
LOC: 1NENULAB → OBSVTOIN 09:20 → 1NENUOBS 20:29

== ENCOUNTER 2019-01-26 11:43 | Observation (INO) ==
[2019-01-26 12:04] LABS: Bilirubin,Urine Negative (Negative); Blood,Urine Negative (Negative); Clarity,Urine Cloudy (Clear); Color,Urine Yellow (Yellow); Glucose,Urine (UA) Normal (Normal); Ketones,Urine Negative (Negative); Leukocyte Esterase,Urine Large (Negative); Nitrite,Urine Negative (Negative); Protein,Urine Negative (Neg-Trace); Specific Gravity,Urine 1.017 (1.010-1.025); Urobilinogen,Urine Normal (Normal)
[2019-01-26 12:08] LABS: Bacteria,Urine Few per hpf (None-Few); Hyaline Casts,Urine Few per lpf (None-Few); Squamous Epithelial Cell,Urine Many per lpf (None-Few); WBC,Urine 50-100 per hpf (0-3)
--- NOTE | 2019-01-26 12:12 | Emergency Department Note ---
Disposition Clinical Impression: Ruptured ovarian cyst, Right lower quadrant abdominal pain, Hydronephrosis, UTI (urinary tract infection), Flank pain, Vomiting, Hypoglycemia Disposition: Admitted As Inpatient Referrals: Caroline Lopez CNP [Primary Care Provider] - Forms: ED Satisfaction Letter, Work/School Release Time of Disposition: 20:08 General Adult HPI - General Chief complaint: ED Abdominal Pain Stated complaint: abd pain Time Seen by Provider: 01/26/19 12:11 Source: patient Limitations: no limitations - History of Present Illness HPI Narrative: 23-year-old female reports emergency department complaining of abdominal pain and right-sided flank pain. She was evaluated yesterday in the emergency department and determined to have a UTI. She was given Keflex as a prescription outpatient and a dose of Rocephin. She contacted her primary care physician regarding increasing flank and abdominal pain and they recommend she come in emergency department she describes nonbloody emesis. There is no history of trauma. No spinal pain or bowel or bladder dysfunction. No history of diarrhea vaginal discharge bleeding or currently. There has been no chest pain shortness of breath or vomiting of bloody material. The patient said she had a remote history of PID, however since then she has had a tubal ligation. She has delivered 2 children. She is not anticoagulated. She reports she is feeling worse than yesterday and does not feel she is able to go home. Pain Scale: 10 - Related Data Home Medications Medication Instructions Recorded Confirmed BuPROPion [Wellbutrin] 150 mg PO DAILY 01/25/19 01/25/19 Citalopram [CeleXA] 20 mg PO DAILY 01/25/19 01/25/19 Previous Rx's Medication Instructions Recorded cephALEXin [Keflex] 500 mg PO TID 7 Days #21 capsule 01/25/19 Allergies Allergy/AdvReac Type Severity Reaction Status Date / Time penicillin G Allergy Hives Verified 01/26/19 11:46 All systems ED: reviewed and negative except as stated. Past Medical History - Past Medical History Medical history: Reports: asthma, other Surgical history: Reports: cholecystectomy, other, LE vascular intervention Psychiatric history: Reports: anxiety, ADHD, depression LOG MARKER history: Reports: bilateral tubal ligation, other - Social History Smoking Status: Current every day smoker Smokeless Tobacco Status: No Alcohol use: Reports: none Drug use: Reports: none Physical Exam - General Limitations: no limitations General appearance: alert, anxious, other (Very uncomfortable in appearance.) - Head Head exam: atraumatic, normocephalic, normal inspection - Eye Eye exam: Present: normal appearance, PERRL, EOMI - ENT ENT exam: normal exam, normal oropharynx, mucous membranes moist - Neck Neck exam: Present: normal inspection, full ROM, trachea midline - Chest Chest inspection: Present: normal inspection, symmetric chest wall rise. Absent: tenderness - Respiratory Respiratory exam: Present: normal lung sounds bilaterally. Absent: respiratory distress, prolonged expiratory phase - Cardiovascular Cardiovascular exam: Present: regular rate, normal rhythm, normal heart sounds - Abdominal Exam Abdominal exam: Present: soft, tenderness. Absent: distention, guarding, rebound, rigidity, trauma, Giang's sign, Rovsing's sign, tenderness at McBurney's Point Abdominal tenderness: Present: RLQ, moderate - Female Operations Supervisor present during exam: Yes (Female nursing) External Exam: Present: normal external exam. Absent: erythema, bleeding, tenderness, swelling, lesions, lacerations, ecchymosis Speculum Exam: Present: cervical OS closed, erythema. Absent: vaginal disch arge, cervical discharge, vaginal bleeding, foreign body, tissue, laceration Bimanual Exam: Present: normal bimanual exam. Absent: cervical motion tenderness - Extremities Exam Extremities exam: Present: normal inspection, full ROM, normal capillary refill. Absent: tenderness, pedal edema, joint swelling, calf tenderness - Expanded Lower Extremity Exam Neurovascular/Tendon exam: Present: normal capillary refill. Absent: motor deficit, sensory deficit, tendon deficit, extremity cold to touch - Back Exam Back exam: Present: normal inspection, full ROM. Absent: tenderness Course Vital Signs Temperature 99 F 01/26/19 11:46 Pulse Rate 93 01/26/19 11:46 Respiratory Rate 15 01/26/19 11:46 Blood Pressure 119/85 01/26/19 11:46 O2 Sat by Pulse Oximetry 98 01/26/19 11:46 Temperature 99 F 01/26/19 11:46 Pulse Rate 75 01/26/19 17:33 Respiratory Rate 16 01/26/19 17:33 Blood Pressure 128/81 01/26/19 17:33 O2 Sat by Pulse Oximetry 100 01/26/19 17:33 Oxygen Delivery Oxygen Delivery Room Air Medical Decision Making - MDM Narrative Medical decision making narrative: The patient complained of persistent and severe right lower abdominal pain. She states she had been vomiting. She reports her primary care physician sent her in for further evaluation regarding vomiting and right-sided abdominal pain and self reported fever at home. The patient's laboratory studies appear to have improved. She was given Dilaudid emergency department had significant recurrent pain. She states she has had a cholecystectomy but still has her appendix and was concerned about potential appendicitis. She has a history of PID but since then has had tubal ligation. There has been no trauma. The patient's pelvic examination is essentially unremarkable. Gonorrhea chlamydia and vaginosis panel were sent. The patient complained of persistent pain and was highly concerned about intra-abdominal processes including appendicitis. After the risk benefits and alternatives to CT scan were discussed, she highly preferred CT. A CT scan with IV and oral contrast was performed. Apparently ruptured ov kimberly cyst noted on CT report. Hydronephrosis bilaterally appreciated. Based on the patient's uncontrolled abdominal pain, abnormal findings on CT scan including ruptured ovarian cyst and apparent hydronephrosis in association with urinary tract infection, vomiting and hypoglycemia, I thought it would, be appropriate to admit the patient the hospital. She feels very uncomfortable going home and does not feel that she can tolerate the pain. IV fluid was given. A pelvic ultrasound is been ordered. I discussed the case with the hospitalist on-call who has accepted the patient to their care. The patient is currently stable pending admission. - Lab Data Lab results reviewed: Yes I reviewed the patient's lab results. Result diagrams: 01/26/19 12:55 01/26/19 12:55 Lab Results 01/26/19 01/26/19 01/26/19 Range/Units 11:49 12:55 12:55 WBC 10.2 (4.3-11.1) K/mcL RBC 4.26 (3.82-4.97) M/mcL Hgb 12.2 (11.5-15.4) g/dL Hct 37.7 (35.3-44.9) % MCV 88.5 (83.0-100.0) fL MCH 28.6 (28.0-33.3) pg MCHC 32.4 (31.6-35.5) g/dL RDW 12.4 (11.5-14.5) % Plt Count 266 (140-400) K/mcL MPV 10.7 (9.4-12.4) fL Immature Gran % 0.4 (0-4) % Seg Neutrophils % 70.3 % Lymphocytes % 19.5 % Monocytes % 8.1 % Eosinophils % 1.3 % Basophils % 0.4 % Neutrophils # 7.1 (1.6-8.9) K/mcL Lymphocytes # 2.0 (0.6-4.6) K/mcL Monocytes # 0.8 (0.0-1.3) K/mcL Eosinophils # 0.1 (0.0-0.6) K/mcL Basophils # 0.0 (0.0-0.2) K/mcL Sodium 137 (136-145) mEq/L Potassium 4.4 (3.5-5.1) mEq/L Chloride 107 (98-107) mEq/L Carbon Dioxide 23 (23-29) mEq/L BUN 9 (6-20) mg/dL Creatinine 0.81 (0.60-1.20) mg/dL Est GFR ( Amer) > 60 (> 60) Est GFR (Non-Af Amer) > 60 (> 60) BUN/Creatinine Ratio 11 (6-26) Glucose 64 L (70-105) mg/dL Calculated Osmolality 281 (280-300) Lactic Acid (0.5-2.2) mmol/L Calcium 9.2 (8.6-10.3) mg/dL Total Bilirubin 0.3 (0.3-1.0) mg/dL Direct Bilirubin 0.0 (0.0-0.2) mg/dL Indirect Bilirubin 0.3 (0.0-1.2) mg/dL AST 14 (13-39) Units/L ALT 12 (7-52) Units/L Alkaline Phosphatase 53 (34-104) Units/L C-Reactive Protein < 5 (Less than 10) mg/L Serum Total Protein 6.4 (6.4-8.9) g/dL Albumin 3.9 (3.5-5.7) g/dL Globulin 2.5 (2.4-3.5) g/dL Albumin/Globulin Ratio 1.6 (1.1-2.2) Lipase 12 (11-82) Units/L Serum , Qual (Negative) Urine Color Yellow (Yellow) Urine Clarity Cloudy A (Clear) Urine pH 6.0 (5.0-8.0) pH Units Ur Specific [place] 1.017 (1.010-1.025) Urine Protein Negative (Neg-Trace) mg/dL Urine Glucose (UA) Normal (Normal) mg/dL Urine Ketones Negative (Negative) mg/dL Urine Blood Negative (Negative) Urine Nitrite Negative (Negative) Urine Bilirubin Negative (Negative) Urine Urobilinogen Normal (Normal) mg/dL Ur Leukocyte Esterase Large H (Negative) Urine Microscopic RBC 3-5 H (0-3) per hpf Urine Microscopic WBC 50-100 H (0-3) per hpf Ur Squamous Epith Cells Many H (None-Few) per lpf Urine Bacteria Few (None-Few) per hpf Hyaline Casts Few (None-Few) per lpf Ur Culture Indicated? YES A (NO) 01/26/19 01/26/19 Range/Units 12:55 12:55 WBC (4.3-11.1) K/mcL RBC (3.82-4.97) M/mcL Hgb (11.5-15.4) g/dL Hct (35.3-44.9) % MCV (83.0-100.0) fL MCH (28.0-33.3) pg MCHC (31.6-35.5) g/dL RDW (11.5-14.5) % Plt Count (140-400) K/mcL MPV (9.4-12.4) fL Immature Gran % (0-4) % Seg Neutrophils % % Lymphocytes % % Monocytes % % Eosinophils % % Basophils % % Neutrophils # (1.6-8.9) K/mcL Lymphocytes # (0.6-4.6) K/mcL Monocytes # (0.0-1.3) K/mcL Eosinophils # (0.0-0.6) K/mcL Basophils # (0.0-0.2) K/mcL Sodium (136-145) mEq/L Potassium (3.5-5.1) mEq/L Chloride (98-107) mEq/L Carbon Dioxide (23-29) mEq/L BUN (6-20) mg/dL Creatinine (0.60-1.20) mg/dL Est GFR ( Amer) (> 60) Est GFR (Non-Af Amer) (> 60) BUN/Creatinine Ratio (6-26) Glucose (70-105) mg/dL Calculated Osmolality (280-300) Lactic Acid 1.0 (0.5-2.2) mmol/L Calcium (8.6-10.3) mg/dL Total Bilirubin (0.3-1.0) mg/dL Direct Bilirubin (0.0-0.2) mg/dL Indirect Bilirubin (0.0-1.2) mg/dL AST (13-39) Units/L ALT (7-52) Units/L Alkaline Phosphatase (34-104) Units/L C-Reactive Protein (Less than 10) mg/L Serum Total Protein (6.4-8.9) g/dL Albumin (3.5-5.7) g/dL Globulin (2.4-3.5) g/dL Albumin/Globulin Ratio (1.1-2.2) Lipase (11-82) Units/L Serum , Qual Negative (Negative) Urine Color (Yellow) Urine Clarity (Clear) Urine pH (5.0-8.0) pH Units Ur Specific [place] (1.010-1.025) Urine Protein (Neg-Trace) mg/dL Urine Glucose (UA) (Normal) mg/dL Urine Ketones (Negative) mg/dL Urine Blood (Negative) Urine Nitrite (Negative) Urine Bilirubin (Negative) Urine Urobilinogen (Normal) mg/dL Ur Leukocyte Esterase (Negative) Urine Microscopic RBC (0-3) per hpf Urine Microscopic WBC (0-3) per hpf Ur Squamous Epith Cells (None-Few) per lpf Urine Bacteria (None-Few) per hpf Hyaline Casts (None-Few) per lpf Ur Culture Indicated? (NO) - Radiology Data Radiology results reviewed: Yes I reviewed the patient's radiology results.
[2019-01-26] MEDS ORDERED: 0.9 % Sodium Chloride 1,000 ML IVC ONE (12:56)
[2019-01-26] MEDS ORDERED: cefTRIAXone 1,000 MG in Water for inj. (sterile) 10 ML IVP ONE (12:57)
[2019-01-26] MEDS ORDERED: Ondansetron 4 MG/2 ML VIAL IVP ONE (12:57)
[2019-01-26] MEDS ORDERED: *HR* HYDROmorphone (PF) 1 MG/ML SYRINGE IVP ONE ×2 (12:57→15:43)
[2019-01-26 13:19] LABS: Basophils % 0.4 %; Eosinophils # 0.1 K/mcL (0.0-0.6); Eosinophils % 1.3 %; Hematocrit 37.7 % (35.3-44.9); Hemoglobin 12.2 g/dL (11.5-15.4); Immature Granulocytes % 0.4 % (0-4); Lymphocytes % 19.5 %; Mean Corpuscular HGB Conc 32.4 g/dL (31.6-35.5); Mean Corpuscular Hemoglobin 28.6 pg (28.0-33.3); Mean Corpuscular Volume 88.5 fL (83.0-100.0); Mean Platelet Volume 10.7 fL (9.4-12.4); Monocytes # 0.8 K/mcL (0.0-1.3); Monocytes % 8.1 %; Neutrophils # 7.1 K/mcL (1.6-8.9); Platelet Count 266 K/mcL (140-400); Red Blood Count 4.26 M/mcL (3.82-4.97); Red Cell Distribution Width 12.4 % (11.5-14.5); Segmented Neutrophils % 70.3 %; White Blood Count 10.2 K/mcL (4.3-11.1)
[2019-01-26 13:44] LABS: Alanine Aminotransferase 12 Units/L (7-52); Albumin 3.9 g/dL (3.5-5.7); Albumin/Globulin Ratio 1.6 (1.1-2.2); Alkaline Phosphatase 53 Units/L (34-104); Aspartate Amino Transferase 14 Units/L (13-39); BUN/Creatinine Ratio 11 (6-26); Bilirubin,Indirect 0.3 mg/dL (0.0-1.2); Bilirubin,Total 0.3 mg/dL (0.3-1.0); Blood Urea Nitrogen 9 mg/dL (6-20); C-Reactive Protein < 5 mg/L (Less than 10); Calcium 9.2 mg/dL (8.6-10.3); Carbon Dioxide 23 mEq/L (23-29); Chloride 107 mEq/L (98-107); Globulin 2.5 g/dL (2.4-3.5); Glucose 64 mg/dL (70-105); Lipase 12 Units/L (11-82); Osmolality,Calculated 281 (280-300); Potassium 4.4 mEq/L (3.5-5.1); Sodium 137 mEq/L (136-145); Total Protein 6.4 g/dL (6.4-8.9); eGFR For African Americans > 60 (> 60); eGFR For Non-African Americans > 60 (> 60)
[2019-01-26] MEDS ORDERED: Isovue-370 500 ML BOTTLE IVP ONE (16:42)
[2019-01-26] MEDS ORDERED: *HR* OxyCODONE/APAP 5/325 TABLET PO ONE (20:14)
[2019-01-26] MEDS ORDERED: Ondansetron 4 MG/2 ML VIAL IVP PRN (20:39)
[2019-01-26] MEDS ORDERED: Naloxone 0.4 MG/ML INJ IVP PRN (20:39)
[2019-01-26] MEDS ORDERED: 0.9 % Sodium Chloride 1,000 ML IVC SCH (20:45)
[2019-01-26 20:46] LABS: Candida DNA Not Detected (Not Detect); Gardnerella DNA DETECTED (Not Detect); Trichomonas DNA DETECTED (Not Detect)
[2019-01-26] MEDS ORDERED: Azithromycin 250 MG TABLET PO ONE (22:06)
[2019-01-26] MEDS ORDERED: metroNIDAZOLE 500 MG TABLET PO ONE (22:06)
--- NOTE | 2019-01-26 22:07 | Internal Med History&Physical ---
Date of Encounter: 01/26/19 Time of Encounter: 22:07 Internal Medicine - H&P: HPI Chief complaint: Intractable abdominal pain History of present illness: Ms. Drake is a 23 year old female with no significant past medical history who presented to the ED with right lower quadrant abdominal pain. Patient was seen here in the ED yesterday for similar symptoms and determined to have a urinary tract infection. She was given a one-time dose of Rocephin and discharged on Keflex. Symptoms continue to persist today. She contacted her PCP who recommended she come in for further evaluation. Patient is also been having nonbloody nonbilious emesis. No reports of increased urinary frequency or urgency or dysuria. No reports of fever or chills, chest pain, shortness of breath, or diarrhea. The patient said she had a remote history of PID, however since then she has had a tubal ligation. On arrival patient was afebrile, hemodynamically stable. Laboratory workup was unremarkable. UA was notable for large leukocyte esterase. STD panel was performed which tested positive for chlamydia vaginosis and Trichomonas. Urine test was negative. CT of the abdomen and pelvis showed a peripherally enhancing right ovarian cyst measuring 1.8 x 1.7 cm which appeared to have recently ruptured. There was also mild bilateral hydronephrosis and hydroureter which may be physiologic versus infectious without any obstructing stone or mass. Transvaginal ultrasound was also performed which was unremarkable. Patient admitted for pain control. Case was discussed with [employer]GS[employer] HEAD MATCHER who will see the patient. Past Med Surg Social Fam HX - Past Medical History Medical history: asthma, other Psychiatric history: anxiety, ADHD, depression - Past Surgical History Surgical History: cholecystectomy, other, LE vascular intervention Additional surgical history: tubal ligation - Social History Smoking Status: Current every day smoker Smokeless Tobacco Status: No Alcohol use: none Drug use: none - Family History Mother Adopted: No Family Member Ethnicity: Non- Living Status: Still Living Hx Family Cardiac Disorders: Yes (HTN) Hx Family Respiratory Disorders: No Hx Family Cancer: No Hx Family GI Disorders: No Hx Family Endocrine Disorder: No Hx Family Neuromuscular Disorders: No Hx Family Neurologic Disorders: No Hx Family HEENT Disorders: No Hx Family Autoimmune Disorders: No Internal Medicine - H&P: Meds Citalopram [CeleXA] 20 mg PO QAM 01/25/19 [History] BuPROPion XL (24 HR) [Wellbutrin XL] 150 mg PO QAM 01/26/19 [History] Hyoscyamine Sulfate 0.125 mg PO Q4H PRN 01/26/19 [History] Melatonin 5 - 10 mg PO HS PRN 01/26/19 [History] Allergy/AdvReac Type Severity Reaction Status Date / Time penicillin G Allergy Hives Verified 01/26/19 22:10 All Systems PM: A 10-system review of systems was performed and is negative for pertinent findings except as documented above in the HPI. - Constitutional Constitutional: no chills, no fever(s), no night sweats - EENT Eyes: no change in vision, no discharge, no pain, no photophobia Ears: no ear discharge, no ear pain, no tinnitus Nose, mouth and throat: no dysphagia, no nasal discharge, no neck pain, no sore throat - Cardiovascular Cardiovascular ROS IM: no chest pain, no diaphoresis, no dyspnea, no lightheadedness, no palpitations, no syncope - Respiratory Respiratory: no cough, no dyspnea, no wheezing, no excessive phlegm production - Gastrointestinal Gastrointestinal: no abdominal pain, no diarrhea, no hematemesis, no hematochezia, no melena, no nausea, no vomiting - Genitourinary Genitourinary: no change in urinary stream, no dysuria, no flank pain, no hematuria - Musculoskeletal Musculoskeletal ROS IM: no numbness, no tingling - Integumentary Integumentary IM: no rash, no unusual bruising - Neurological Neurological ROS: no confusion, no convulsions, no focal weakness, no numbness, no tingling, no tremor(s) - Hematologic/Lymphatic Hematologic/Lymphatic: no easy bruising - Constitutional Vitals: Temp Pulse Resp BP Pulse Ox 99 F 80 16 128/91 100 01/26/19 11:46 01/26/19 20:32 01/26/19 20:32 01/26/19 20:32 01/26/19 20:32 Exam: General: Alert and oriented 3 lying in bed in no acute distress Skin:Normal color, no rash, no lesions. HEENT:EOM, pupils equal, round and reactive. Cardiovascular: Normal S1 & S2, no rubs, murmurs or gallops. No JVD. Pulse regular. Lungs:Normal breath sounds, no wheezes or crackles. Abdomen: Right lower quadrant abdominal pain to palpation. No rebound or guarding Extremities:No deformity, no edema or tenderness, no joint swelling or clubbing. Neurological:Normal cognition and motor skills. Pulses:Carotid and radial pulses normal +2. Rest of the physical exam is non contributory - Head Head exam: Present: atraumatic, normocephalic - Eye Eye exam: Present: PERRL, conjuntiva pink, sclera anicteric Pupils: Present: PERRL - Neck Neck exam general surgery: Present: supple, trachea midline. Absent: lymphadenopathy - Respiratory Respiratory exam: Present: CTAB. Absent: accessory muscle use, rales, rhonchi, wheezes - Cardiovascular Cardiovascular exam: Present: RRR, +S1, +S2. Absent: diastolic murmur, gallop, rubs, systolic murmur - GI/Abdominal GI/Abdominal exam: Present: normal bowel sounds, soft, no peritoneal signs. Absent: distended, tenderness - Extremities Exam Extremities exam: Present: warm, radial pulses palpable and symmetrical. Absent: calf tenderness, cyanotic, pedal edema - Neurological Exam Neurological exam: Present: CN II-XII intact, oriented X3, no focal deficits. Absent: pronater drift, facial droop, speech deficit - Skin Skin exam: Present: dry, intact Internal Med - H&P Results - Labs CBC & Chem 7: 01/27/19 06:17 01/27/19 06:17 Labs: Short CBC 01/26/19 Range/Units 12:55 WBC 10.2 (4.3-11.1) K/mcL Hgb 12.2 (11.5-15.4) g/dL Hct 37.7 (35.3-44.9) % Plt Count 266 (140-400) K/mcL Neutrophils # 7.1 (1.6-8.9) K/mcL BMP 01/26/19 12:55 Sodium 137 Potassium 4.4 Chloride 107 Carbon Dioxide 23 BUN 9 Creatinine 0.81 Glucose 64 L Calcium 9.2 Liver Function 01/26/19 Range/Units 12:55 Total Bilirubin 0.3 (0.3-1.0) mg/dL Direct Bilirubin 0.0 (0.0-0.2) mg/dL AST 14 (13-39) Units/L ALT 12 (7-52) Units/L Alkaline Phosphatase 53 (34-104) Units/L Albumin 3.9 (3.5-5.7) g/dL Urine 01/26/19 Range/Units 11:49 Urine Color Yellow (Yellow) Urine Clarity Cloudy A (Clear) Urine pH 6.0 (5.0-8.0) pH Units Ur Specific [place] 1.017 (1.010-1.025) Urine Protein Negative (Neg-Trace) mg/dL Urine Glucose (UA) Normal (Normal) mg/dL - Impressions ITS Impressions Abdomen/Pelvis CT 01/26/19 18:00 IMPRESSION: 1. Peripherally enhancing right ovarian cyst measuring 1.8 x 1.7 cm which may have recently ruptured and could represent a source for the patient's pain. No follow-up imaging is required. 2. Mild bilateral hydronephrosis and hydroureter which may be physiologic versus infection. No obstructing stone or mass is identified. No abscess or inflammatory changes are noted along the kidneys. 3. The appendix is visualized and normal in appearance. D/ / 01/26/2019 18:51:03 Sergo Gamez MD / [facility] Interpreting Provider: Sergo Gamez MD Abdomen/Pelvis/Transvag US 01/26/19 20:05 IMPRESSION: Unremarkable ultrasound appearance of the uterus. Normal Doppler flow within the ovaries. Right adnexal finding demonstrated on CT is a normal physiologic process requiring no additional evaluation or follow-up. No abnormality sonographically. D/ / Dion Tripathi / Dion Tripathi Interpreting Provider: Dion Tripathi - Assessment and Plan (1) Right lower quadrant abdominal pain Current Visit: Yes Status: Acute Assessment and plan: Patient presenting with significant right lower quadrant abdominal pain. History of tubal ligation. Negative test. A CT scan of the abdomen showing a right ovarian cyst which appears to have recently ruptured and consistent with patient's location of her pain. Patient denies any dysuria, frequency or urgency. Patient did test positive for chlamydia, vaginosis and trichomoniasis. Case discussed with gynecology who said they would consult on the patient. -Continue pain control as needed -We will treat for STDs -Follow up [employer] M[employer]ER recommendations (2) Ruptured ovarian cyst Current Visit: Yes Status: Acute Assessment and plan: See above (3) Hydronephrosis Current Visit: Yes Status: Acute Assessment and plan: CT showing bilateral mild hydronephrosis and hydroureter which may be physiologic versus infection. Patient however does not endorse any difficulty urinating or dysuria despite UA positive for leukocyte esterase. Patient's kidney function completely normal. -Patient has received 2 doses of ceftriaxone; one today and one given yesterday. -I do not feel any further intervention is required at this time given lack of symptoms. Recommend monitor, hydration and reassess in the morning. Qualifiers: Hydronephrosis type: unspecified Qualified Code(s): N13.30 - Unspecified hydronephrosis (4) Vomiting Current Visit: Yes Status: Acute Assessment and plan: Zofran as needed Qualifiers: Vomiting type: unspecified Vomiting Intractability: non-intractable Nausea presence: unspecified Qualified Code(s): R11.10 - Vomiting, unspecified - Time Spent With Patient Total time spent is greater than 50% in coordination of care (as documented) at patient's floor/unit and/or counseling patient:
[2019-01-27] MEDS ORDERED: Acetaminophen 325 MG TABLET PO ONE (06:26)
--- NOTE | 2019-01-27 06:38 | OB/GYN Consult Note ---
Date of Encounter: 01/27/19 Time of Encounter: 06:35 Assessment and Plan (1) PID (acute pelvic inflammatory disease) Current Visit: Yes Status: Acute Suspect PID due to previous history and current infections, POC created in consultation with Dr. Mercer. Patient denies CMT with ER bimanual exam. Follow up outpatient with Dr. Maddox Suggest discharge home today with appropriate pain management plan. (2) Trichomonal vaginitis Current Visit: Yes Status: Acute Treated with 2 gm Flagyl while inpatient. (3) Bacterial vaginosis Current Visit: Yes Status: Acute Send home with RX for Metrogel x 5 days (4) Chlamydia Current Visit: Yes Status: Acute Treated in ER with Zithromax Follow up with Dr. Maddox oupatient. (5) Urinary tract infection Current Visit: Yes Status: Acute Treatment initiated at previous ER visit. Rocephin given on admission Patient should continue previous Keflex prescription upon discharge. Qualifiers: Urinary tract infection type: acute cystitis Hematuria presence: without hematuria Qualified Code(s): N30.00 - Acute cystitis without hematuria (6) Ruptured ovarian cyst Current Visit: Yes Status: Acute Imaging suggests routine follow up Follow up outpatient with Dr. Maddox Pain management plan upon discharge History of Present Illness Consult date: 01/27/19 Requesting physician: Rodolfo Zambrano Reason for consult: pelvic pain, ovarian cyst, pelvic infection Chief complaint: Right lower quadrant pain History of present illness: Patient arrived to the ER with complaints of lower right quadrant pain. 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 She denies any vaginal bleeding or abnormal discharge. She does report a previous history of PID and Chlamydia. From hospitalist HPI: Ms. Drake is a 23 year old female with no significant past medical history who presented to the ED with right lower quadrant abdominal pain. Patient was seen here in the ED yesterday for similar symptoms and determined to have a urinary tract infection. She was given a one-time dose of Rocephin and discharged on Keflex. Symptoms continue to persist today. She contacted her PCP who recommended she come in for further evaluation. Patient is also been having nonbloody nonbilious emesis. No reports of increased urinary frequency or urgency or dysuria. No reports of fever or chills, chest pain, shortness of breath, or diarrhea. The patient said she had a remote history of PID, however since then she has had a tubal ligation. On arrival patient was afebrile, hemodynamically stable. Laboratory workup was unremarkable. UA was notable for large leukocyte esterase. STD panel was performed which tested positive for chlamydia, bacterial vaginosis and Trichomonas. Urine test was negative. CT of the abdomen and pelvis showed a peripherally enhancing right ovarian cyst measuring 1.8 x 1.7 cm which appeared to have recently ruptured. There was also mild bilateral hydronephrosis and hydroureter which may be physiologic versus infectious without any obstructing stone or mass. Transvaginal ultrasound was also performed which was unremarkable. Patient admitted for pain control. Case was discussed with TRANSCRIBING MACHINE OPERATOR who will see the patient. Past Med Surg Social Fam HX - Past Medical History Medical history: asthma, other Psychiatric history: anxiety, ADHD, depression - Past Surgical History Surgical History: cholecystectomy Additional surgical history: tubal ligation t&a - Social History Smoking Status: Never smoker Smokeless Tobacco Status: No Alcohol use: none Drug use: none - Family History Mother Adopted: No Family Member Ethnicity: Non- Living Status: Still Living Hx Family Cardiac Disorders: Yes (HTN) Hx Family Respiratory Disorders: No Hx Family Cancer: No Hx Family GI Disorders: No Hx Family Endocrine Disorder: No Hx Family Neuromuscular Disorders: No Hx Family Neurologic Disorders: No Hx Family HEENT Disorders: No Hx Family Autoimmune Disorders: No Medications and Allergies Citalopram [CeleXA] 20 mg PO QAM 01/25/19 [History] BuPROPion XL (24 HR) [Wellbutrin XL] 150 mg PO QAM 01/26/19 [History] Hyoscyamine Sulfate 0.125 mg PO Q4H PRN 01/26/19 [History] Melatonin 5 - 10 mg PO HS PRN 01/26/19 [History] Allergy/AdvReac Type Severity Reaction Status Date / Time penicillin G Allergy Hives Verified 01/26/19 22:10 Review of Systems Genitourinary Female: as per HPI, flank pain, pelvic pain, no vaginal odor, no vaginal pruritis Exam - Vital Signs Vital signs: Initial Vital Signs Temp Pulse Resp BP Pulse Ox 99 F 93 15 119/85 98 01/26/19 11:46 01/26/19 11:46 01/26/19 11:46 01/26/19 11:46 01/26/19 11:46 - Constitutional Constitutional: well developed, well nourished, no acute distress, average body habitus - HEENT HEENT: Normocephaly, Mucus Membranes Moist - Neck Neck exam: full ROM - Lungs Respiratory exam: CTAB - Cardiovascular Cardiovascular exam: RRR, +S1, +S2 - Abdomen Abdomen: Present: bowel sounds normal Abdomen detail: right lower quadrant: tenderness (with palpation) - Extremities Extremities exam: full ROM, normal capillary refill (Deferred pelvic since she had ER exam), normal inspection Results Result Diagrams: 01/26/19 12:55 01/26/19 12:55 Abnormal lab results Glucose 64 mg/dL (70-105) L 01/26/19 12:55 Urine Clarity Cloudy (Clear) A 01/26/19 11:49 Ur Leukocyte Esterase Large (Negative) H 01/26/19 11:49 Urine Microscopic RBC 3-5 per hpf (0-3) H 01/26/19 11:49 Urine Microscopic WBC 50-100 per hpf (0-3) H 01/26/19 11:49 Ur Squamous Epith Cells Many per lpf (None-Few) H 01/26/19 11:49 Ur Culture Indicated? YES (NO) A 01/26/19 11:49 Chlam trachomat DNA PCR DETECTED (Not Detect) A 01/26/19 19:20 Gardnerella DNA Probe DETECTED (Not Detect) A 01/26/19 19:20 Trichomonas DNA Probe DETECTED (Not Detect) A 01/26/19 19:20 All other labs normal. Consult Discharge Plan - Plan Referrals: Caroline Lopez CNP [Primary Care Provider] -
[2019-01-27 06:44] LABS: Hematocrit 34.7 % (35.3-44.9); Hemoglobin 11.6 g/dL (11.5-15.4); Mean Corpuscular HGB Conc 33.4 g/dL (31.6-35.5); Mean Corpuscular Hemoglobin 29.4 pg (28.0-33.3); Mean Corpuscular Volume 87.8 fL (83.0-100.0); Mean Platelet Volume 10.8 fL (9.4-12.4); Platelet Count 263 K/mcL (140-400); Red Blood Count 3.95 M/mcL (3.82-4.97); Red Cell Distribution Width 12.3 % (11.5-14.5); White Blood Count 5.8 K/mcL (4.3-11.1)
[2019-01-27 07:02] LABS: BUN/Creatinine Ratio 13 (6-26); Blood Urea Nitrogen 10 mg/dL (6-20); Calcium 8.7 mg/dL (8.6-10.3); Carbon Dioxide 24 mEq/L (23-29); Chloride 106 mEq/L (98-107); Glucose 89 mg/dL (70-105); Osmolality,Calculated 279 (280-300); Potassium 3.8 mEq/L (3.5-5.1); Sodium 135 mEq/L (136-145); eGFR For African Americans > 60 (> 60); eGFR For Non-African Americans > 60 (> 60)
[2019-01-27] MEDS ORDERED: BuPROPion XL (24 HR) 150 MG TABLET PO SCH (09:00)
[2019-01-27 12:57] LABS: Hepatitis B Surface Antibody 3.84 mIU/mL
[2019-01-27 13:08] LABS: Hepatitis B Surface Antigen Nonreactive (Nonreactive)
[2019-01-27 13:37] LABS: Hepatitis C Virus Antibody Nonreactive (Nonreactive)
[2019-01-27 13:39] LABS: Hepatitis A Antibody IgM Nonreactive (Nonreactive)
[2019-01-27 14:50] VITALS: BP 125/81
--- NOTE | 2019-01-27 16:23 | Discharge Summary ---
- NOTES TO OUTPATIENT PROVIDER Notes to Outpatient Provider: Posthospital discharge follow up for pelvic inflammatory disease, sexually transmitted infection-chlamydia, Trichomonas and Gardnerella, overian cyst rupture. We will need outpatient follow-up with Dr. Humphrey Orders not resulted at time of discharge: Pending orders 01/26/19 13:28 Culture,Blood [BC] Stat Date of Encounter: 01/27/19 Time of Encounter: 16:20 - Discharge Diagnosis (1) Sexually transmitted infection Priority: Primary Status: Acute Assessment and Plan: Chlamydia treated in the ED with Zithromax, Trichomonas treated with 2 g of Flagyl, bacterial vaginosis will need 5 days of MetroGel. She admitted to having unprotected intercourse with the father of her children although they are not he is to a different woman. She does admit to him being promiscuous. She was screened for hepatitis A which was negative, hepatitis B'surface antigen was negative however antibody was positive she does admit to prior immunization. Hepatitis C was negative and HIV screen was negative. She was educated on safe sex and strongly advised to always use protection (2) PID (acute pelvic inflammatory disease) Priority: Primary Status: Acute Assessment and Plan: Secondary to STDs as stated above (3) Right lower quadrant abdominal pain Priority: Secondary Status: Acute Assessment and Plan: combination of PID and ruptured ovarian cyst, will discharge oral narcotics (4) Ruptured ovarian cyst Priority: Secondary Status: Acute Assessment and Plan: He was seen by the DEPARTMENT HELPER plan is for outpatient follow-up (5) Hydronephrosis Priority: Secondary Status: Acute Assessment and Plan: CT showing bilateral mild hydronephrosis and hydroureter which may be physiologic versus infection. Patient however does not endorse any difficulty urinating or dysuria despite UA positive for leukocyte esterase. Patient's kidney function completely normal. -Patient has received 2 doses of ceftriaxone; one today and one given yesterday. -I do not feel any further intervention is required at this time given lack of symptoms. Recommend monitor, hydration and reassess in the morning. Qualifiers: Hydronephrosis type: unspecified Qualified Code(s): N13.30 - Unspecified hydronephrosis Hospital course: Ms. Drake is a 23 year old female was hospitalized for abdominal pain and diagnosed with PID and ruptured ovarian cyst. Workup included sexually transmitted infection for which she was positive for chlamydia, Trichomonas and Gardnerella. She admitted to unprotected sex. She was screened for hepatitis A, B, and C were negative except for hepatitis B surface antibodies which was positive she admits to prior vaccination. HIV screen was negative. Patient was strongly at advised to use protection at all times during sexual intercourse. She is to follow up with DEPARTMENT HELPER for her ovarian cyst rupture as an outpatient Discharge discussed with: patient, nurse - Time Spent with Patient Total time spent providing and/or coordinating discharge services:34 mins Specific discharge activities: Please take all medications as prescribed and follow-up your DEPARTMENT HELPER - Discharge Medications Prescriptions: New MetroNIDAZOLE [Metrogel-Vaginal] 70 gm VG HS 7 Days #1 pkg Oxycodone HCl/Acetaminophen [Percocet 5-325 mg Tablet] 1 tab PO Q6H PRN 7 Days #28 tablet PRN Reason: Pain Continued Citalopram [CeleXA] 20 mg PO QAM Hyoscyamine Sulfate 0.125 mg PO Q4H PRN PRN Reason: ABDOMINAL CRAMPS BuPROPion XL (24 HR) [Wellbutrin Xl] 150 mg PO QAM Melatonin 5 - 10 mg PO HS PRN PRN Reason: Sleep Home Medications: Citalopram [CeleXA] 20 mg PO QAM 01/25/19 [History] BuPROPion XL (24 HR) [Wellbutrin Xl] 150 mg PO QAM 01/26/19 [History] Hyoscyamine Sulfate 0.125 mg PO Q4H PRN 01/26/19 [History] Melatonin 5 - 10 mg PO HS PRN 01/26/19 [History] MetroNIDAZOLE [Metrogel-Vaginal] 70 gm VG HS 7 Days #1 pkg 01/27/19 [Rx] Oxycodone HCl/Acetaminophen [Percocet 5-325 mg Tablet] 1 tab PO Q6H PRN 7 Days #28 tablet 01/27/19 [Rx] Allergies/Adverse Reactions: Allergy/AdvReac Type Severity Reaction Status Date / Time penicillin G Allergy Hives Verified 01/26/19 22:10 Date of admission: 01/26/19 22:14 Primary care physician: Caroline Lopez CNP Consults: 01/26/19 21:29 Consult to CUSTOMER SUPPORT PROFESSIONAL [CONS] Stat Consulting Provider: DEPARTMENT HELPER [place] Reason for Consult: Concern for ruptured ovarian cyst Call Completed: Yes Discharging clinician: Maricarmen Sainz - Constitutional Vitals: Temp Pulse Resp BP Pulse Ox 98.7 F 92 17 125/81 99 01/27/19 14:46 01/27/19 14:46 01/27/19 14:46 01/27/19 14:46 01/27/19 14:46 Exam: GEN: NAD, A&O x 3, Pleasant and conversant SKIN: [place] warm acyanotic not jaundice HEART: RRR, no murmurs LUNGS: CTA no wheeze or crackles, overall non labored ABDOMEN; Soft, non tender or distended, BS x 4 normactive EXT: No LE edema, Pedal pulses 1+, radial pulses 2+ PSYCH: Mood and affect is appropriate - Patient Status Disposition: Home, Self-Care Condition: Good Functional capacity at discharge: independent ambulation Overall status at discharge: patient is back to baseline - Discharge Instructions Follow Up With: Caroline Lopez, SENIOR OPERATIONS MANAGER [Primary Care Provider] - - Diet and Activity Activity: resume usual activities as tolerated Diet: regular diet
== END 2019-01-27 18:15 | disposition home or self-care (01) ==
LOC: EMEROOARM 11:43 → 3ANU 11:43 → SUATTDRO 22:14 → 3ANU 22:30
PROVIDERS: ADMIT Internal Medicine; ATTEND Pharmacist